=== PATIENT | female | born 1985 | race African-American/Black ===

== ENCOUNTER 2023-09-08 07:05 | Emergency (ER) | payer OTHER ==
[~2023-09-08] VITALS: Ht 167.6 cm; Wt 70.5 kg
[2023-09-08 07:51] VITALS: TEMP 100.3
[2023-09-08 08:01] LABS: COVID AG,FIA SOURCE NASAL SWAB
[2023-09-08 08:30] LABS: SARS-COV2 (COVID) ANTIGEN,FIA Negative (Negative)
[2023-09-08 08:31] LABS: INFLUENZA TYPE A NEGATIVE FOR TYPE A (NEGATIVE); INFLUENZA TYPE B NEGATIVE FOR TYPE B (NEGATIVE)
[2023-09-08 09:10] VITALS: BP 142/90; PULSE 100; RESP 14
[2023-09-08] MEDS ORDERED: AMOXICILLIN TRIHYDRATE 250 MG CAPSULE PO ONE (09:15)
[2023-09-08] MEDS ORDERED: KETOROLAC TROMETHAMINE 60 MG/2 ML VIAL IM ONE (09:15)
[2023-09-08] MEDS ORDERED: AMOX500C2 PO (10:14)
== END 2023-09-08 10:16 | disposition left against medical advice (07) ==
LOC: EMS 07:05
DX: J32.9 Chronic sinusitis, unspecified (principal); R50.9 Fever, unspecified; Z20.822 Contact with and (suspected) exposure to COVID-19
CPT/HCPCS: 71045; 87804; 99284; J1885